=== PATIENT | male | born 1995 | race Caucasian/White ===

== ENCOUNTER 2018-11-14 00:27 | Observation (INO) | payer BC ==
[2018-11-14] MEDS ORDERED: HYDROmorphone 1 MG/ML Syringe IVPUSH ONE ×4 (00:48→07:17)
[2018-11-14] MEDS ORDERED: Metoclopramide 10 MG/2 ML SDV IVPUSH ONE ×2 (00:48→07:17)
--- NOTE | 2018-11-14 00:48 | EDM.PDOC ---
ED HPI GENERAL MEDICAL PROBLEM - General Chief Complaint: Abdominal Pain Stated Complaint: ABDOMINAL PAIN/BLOOD IN VOMIT Time Seen by Provider: 11/14/18 00:42 Source of Information: Reports: Patient History Limitations: Reports: No Limitations - History of Present Illness INITIAL COMMENTS - FREE TEXT/NARRATIVE: 23-year-old male presents to the ED with left upper quadrant epigastric abdominal pain and pain radiating up into his anterior chest and left anterior shoulder. Patient states he woke up this morning with epigastric pain / discomfort and took a Nexium 40mg tablet which alleviated his discomfort until after eating supper tonight. This was about 2000 hrs. After this he developed associated nausea and vomiting and dry heaving. He states the last 2 emeses contained jennifer blood, enough to fill a handful both times. It was bright red without any clots. Currently is having no trouble swallowing. Patient has a history of being diagnosed with H. pylori infection a year ago and did complete a course of therapy. He has a history of significant gastroesophageal reflux disease with the occasional awakening during the night with brash water in his mouth and throat. He states he's been plagued with epigastric and anterior chest pain particularly the left side radiating to his arm many times over the last several years. He states he been to the emergency room around 25 times and always has a normal heart check up. No formal diagnosis is ever been made as to the cause for his recurrent chest pains. Of note the patient is very large he weighs currently around 340 pounds. He does drink alcohol occasionally but hasn' t for some time now. Does not take Motrin or Aleve or aspirin. Described his current pain is deep boring and burning type pain in the pit of his stomach. Initial vital signs are stable. Patient states she's been living on Nexium and Prilosec and antacids for many years. Onset: Sudden Onset Date: 11/13/18 Onset Time: 20:30 (Estimates he's vomited 5-6 times.) Duration: Hour(s):, Getting Worse (Last 2 emeses contained jennifer blood with no clots) Location: Reports: Chest, Abdomen (Epigastrium and left upper quadrant of the abdomen radiating up into his) Quality: Reports: Ache, Burning Severity: Severe (810) Improves with: Reports: None Worsens with: Reports: None Context: Denies: Activity, Exercise, Lifting, Sick Contact, Trauma, Other Associated Symptoms: Reports: Chest Pain, Loss of Appetite, Nausea/Vomiting ( See history of present illness). Denies: Confusion, Cough, cough w sputum, Diaphoresis, Fever/Chills, Headaches, Malaise, Rash, Seizure, Shortness of Breath, Syncope, Weakness Treatments CONTACT CENTRE SUPERVISOR: Reports: Other (see below) (None.) Left Upper Abdomen Pain Score (Numeric/FACES): 7 - Related Data Allergies Allergy/AdvReac Type Severity Reaction Status Date / Time No Known Allergies Allergy Verified 11/14/18 00:38 Home Meds: Home Meds Esomeprazole Magnesium [Nexium] 40 mg PO DAILY 11/14/18 [History] Ondansetron [Zofran ODT] 4 mg PO Q6H PRN #30 tab.dis 11/14/18 [Rx] Past Medical History Gastrointestinal History: Reports: GERD Psychiatric History: Reports: Anxiety Social & Family History - Tobacco Use Smoking Status *Q: Never Smoker - Caffeine Use Caffeine Use: Reports: Coffee - Recreational Drug Use Recreational Drug Use: No - Living Situation & Occupation Living situation: Reports: Occupation: Employed (Self-employed) ED ROS GENERAL - Review of Systems Review Of Systems: See Below Constitutional: Reports: Decreased Appetite. Denies: Fever, Chills, Malaise, Weakness, Fatigue, Weight Loss HEENT: Reports: No Symptoms Respiratory: Reports: No Symptoms Cardiovascular: Reports: Chest Pain (Starts in his epigastrium and radiates up into his chest although it to his left shoulder at times). Denies: Blood Pressure Problem, Claudication, Dyspnea on Exertion, Edema, Lightheadedness, Orthopnea, Palpitations Endocrine: Reports: No Symptoms GI/Abdominal: Reports: Abdominal Pain (See history of present illness), Hematemesis, Nausea, Vomiting (Recurrent vomiting since about 2030 hrs. last night with the last 2 emeses containing jennifer blood.) : Reports: No Symptoms Musculoskeletal: Reports: Back Pain (Occasional low back pain) Skin: Reports: No Symptoms Neurological: Reports: No Symptoms Psychiatric: Reports: No Symptoms Hematologic/Lymphatic: Reports: No Symptoms Immunologic: Reports: No Symptoms ED EXAM, GI/ABD - Physical Exam Exam: See Below Exam Limited By: No Limitations General Appearance: Alert, WD/WN, Mild Distress, Other (Blood pressure is 124/ 90. Pulse ox 96% on room air temperatures 35.7 which is inaccurate. Pulse is 76 and sinus.) Eyes: Bilateral: Normal Appearance (No pallor.) Throat/Mouth: Normal Inspection, Normal Lips, Normal Teeth, Normal Oropharynx, Other (No signs of recent nosebleed) Head: Atraumatic, Normocephalic Neck: Normal Inspection, Supple, Non-Tender, Full Range of Motion. No: Lymphadenopathy (L), Lymphadenopathy (R) Respiratory/Chest: No Respiratory Distress, Lungs Clear, Normal Breath Sounds, No Accessory Muscle Use Cardiovascular: Normal Peripheral Pulses, Regular Rate, Rhythm, No Edema, No Gallop, No Murmur, No Rub GI/Abdominal Exam: Normal Bowel Sounds, No Organomegaly, No Mass, Pelvis Stable , Guarding ( There is some guarding on the left upper quadrant), Tender ( Tenderness in the epigastrium and left upper quadrant particularly.). No: Rigid , Rebound (Male) Exam: No Hernia Back Exam: Normal Inspection. No: CVA Tenderness (L), CVA Tenderness (R) Extremities: Normal Inspection, Normal Range of Motion, Non-Tender, No Pedal Edema Neurological: Alert, Oriented, CN II-XII Intact, Normal Cognition Psychiatric: Anxious Skin Exam: Warm, Dry (Mildly anxious), Intact, Normal Color, No Rash Course - Vital Signs Last Recorded V/S: Last Vital Signs Temp 36.7 C 11/14/18 08:21 Pulse 60 11/14/18 08:21 Resp 16 11/14/18 08:21 BP 144/77 H 11/14/18 08:21 Pulse Ox 91 L 11/14/18 08:21 - Orders/Labs/Meds Labs: Laboratory Tests 11/14/18 11/14/18 11/14/18 Range/Units 00:50 00:50 00:50 WBC 7.91 (4.23-9.07) K/mm3 RBC 5.24 (4.63-6.08) M/mm3 Hgb 15.1 (13.7-17.5) gm/L Hct 45.5 (40.1-51.0) % MCV 86.8 (79.0-92.2) fl MCH 28.8 (25.7-32.2) pg MCHC 33.2 (32.2-35.5) g/dl RDW Std Deviation 43.4 (35.1-43.9) fL Plt Count 260 (163-337) K/mm3 MPV 10.2 (9.4-12.3) fl Neutrophils % (Manual) 43 (40-60) % Band Neutrophils % 1 (0-10) % Lymphocytes % (Manual) 46 H (20-40) % Atypical Lymphs % 0 % Monocytes % (Manual) 8 (2-10) % Eosinophils % (Manual) 0 L (0.8-7.0) % Basophils % (Manual) 2 H (0.2-1.2) Platelet Estimate Adequate Plt Morphology Comment Normal RBC Morph Comment Normal PT (9.5-12.1) SECONDS INR APTT (24-31) SECONDS Sodium 139 (136-145) mEq/L Potassium 3.8 (3.5-5.1) mEq/L Chloride 101 (98-107) mEq/L Carbon Dioxide 24 (21-32) mEq/L Anion Gap 17.8 H (5-15) BUN 18 (7-18) mg/dL Creatinine 1.1 (0.7-1.3) mg/dL Est Cr Clr Drug Dosing 117.03 mL/min Estimated GFR (MDRD) > 60 (>60) mL/min BUN/Creatinine Ratio 16.4 (14-18) Glucose 102 (74-106) mg/dL Calcium 9.5 (8.5-10.1) mg/dL Total Bilirubin 0.3 (0.2-1.0) mg/dL AST 28 (15-37) U/L ALT 63 (16-63) U/L Alkaline Phosphatase 40 L (46-116) U/L Total Protein 7.7 (6.4-8.2) g/dl Albumin 4.2 (3.4-5.0) g/dl Globulin 3.5 gm/dL Albumin/Globulin Ratio 1.2 (1-2) Lipase 172 (73-393) U/L Blood Type A POSITIVE Gel Antibody Screen Negative 11/14/18 11/14/18 11/14/18 Range/Units 00:50 06:05 06:05 WBC (4.23-9.07) K/mm3 RBC (4.63-6.08) M/mm3 Hgb 14.8 (13.7-17.5) gm/L Hct 44.7 (40.1-51.0) % MCV (79.0-92.2) fl MCH (25.7-32.2) pg MCHC (32.2-35.5) g/dl RDW Std Deviation (35.1-43.9) fL Plt Count (163-337) K/mm3 MPV (9.4-12.3) fl Neutrophils % (Manual) (40-60) % Band Neutrophils % (0-10) % Lymphocytes % (Manual) (20-40) % Atypical Lymphs % % Monocytes % (Manual) (2-10) % Eosinophils % (Manual) (0.8-7.0) % Basophils % (Manual) (0.2-1.2) Platelet Estimate Plt Morphology Comment RBC Morph Comment PT 10.5 (9.5-12.1) SECONDS INR 0.96 APTT 29 (24-31) SECONDS Sodium 138 (136-145) mEq/L Potassium 3.7 (3.5-5.1) mEq/L Chloride 103 (98-107) mEq/L Carbon Dioxide 23 (21-32) mEq/L Anion Gap 15.7 H (5-15) BUN 16 (7-18) mg/dL Creatinine 1.0 (0.7-1.3) mg/dL Est Cr Clr Drug Dosing 128.73 mL/min Estimated GFR (MDRD) > 60 (>60) mL/min BUN/Creatinine Ratio 16.0 (14-18) Glucose 95 (74-106) mg/dL Calcium 9.0 (8.5-10.1) mg/dL Total Bilirubin (0.2-1.0) mg/dL AST (15-37) U/L ALT (16-63) U/L Alkaline Phosphatase (46-116) U/L Total Protein (6.4-8.2) g/dl Albumin (3.4-5.0) g/dl Globulin gm/dL Albumin/Globulin Ratio (1-2) Lipase (73-393) U/L Blood Type Gel Antibody Screen 11/14/18 Range/Units 06:05 WBC (4.23-9.07) K/mm3 RBC (4.63-6.08) M/mm3 Hgb (13.7-17.5) gm/L Hct (40.1-51.0) % MCV (79.0-92.2) fl MCH (25.7-32.2) pg MCHC (32.2-35.5) g/dl RDW Std Deviation (35.1-43.9) fL Plt Count (163-337) K/mm3 MPV (9.4-12.3) fl Neutrophils % (Manual) (40-60) % Band Neutrophils % (0-10) % Lymphocytes % (Manual) (20-40) % Atypical Lymphs % % Monocytes % (Manual) (2-10) % Eosinophils % (Manual) (0.8-7.0) % Basophils % (Manual) (0.2-1.2) Platelet Estimate Plt Morphology Comment RBC Morph Comment PT (9.5-12.1) SECONDS INR APTT (24-31) SECONDS Sodium (136-145) mEq/L Potassium (3.5-5.1) mEq/L Chloride (98-107) mEq/L Carbon Dioxide (21-32) mEq/L Anion Gap (5-15) BUN (7-18) mg/dL Creatinine (0.7-1.3) mg/dL Est Cr Clr Drug Dosing mL/min Estimated GFR (MDRD) (>60) mL/min BUN/Creatinine Ratio (14-18) Glucose (74-106) mg/dL Calcium (8.5-10.1) mg/dL Total Bilirubin (0.2-1.0) mg/dL AST (15-37) U/L ALT (16-63) U/L Alkaline Phosphatase (46-116) U/L Total Protein (6.4-8.2) g/dl Albumin (3.4-5.0) g/dl Globulin gm/dL Albumin/Globulin Ratio (1-2) Lipase 129 (73-393) U/L Blood Type Gel Antibody Screen Meds: Medications Discontinued Medications Generic Name Dose Route Start Last Admin Trade Name Freq PRN Reason Stop Dose Admin Al Hydroxide/Mg Hydroxide 30 0 ml 11/14/18 00:52 11/14/18 01:07 ml/ Lidocaine HCl 15 ml PO 11/14/18 00:53 45 ml ONETIME ONE Administration Hydromorphone HCl 1 mg 11/14/18 00:48 11/14/18 01:04 Dilaudid IVPUSH 11/14/18 00:49 1 mg ONETIME ONE Administration Hydromorphone HCl 1 mg 11/14/18 01:52 11/14/18 01:58 Dilaudid IVPUSH 11/14/18 01:53 1 mg ONETIME ONE Administration Hydromorphone HCl 1 mg 11/14/18 03:28 11/14/18 03:36 Dilaudid IVPUSH 11/14/18 03:29 1 mg ONETIME ONE Administration Hydromorphone HCl 1 mg 11/14/18 07:17 11/14/18 07:30 Dilaudid IVPUSH 11/14/18 07:18 1 mg ONETIME ONE Administration Hydromorphone HCl 1 mg 11/14/18 08:46 11/14/18 13:13 Dilaudid IVPUSH 1 mg Q2H PRN Administration Pain Sodium Chloride 1,000 mls @ 250 mls/hr 11/14/18 01:00 11/14/18 01:01 Normal Saline IV 250 mls/hr ASDIRECTED SHAUN Administration Pantoprazole Sodium 80 mg/ 100 mls @ 10 mls/hr 11/14/18 01:00 11/14/18 01:12 Sodium Chloride IV 10 mls/hr Q10H SHAUN Administration Potassium Chloride/Dextrose/Sod Cl 1,000 mls @ 125 mls/hr 11/14/18 08:45 09:12 D5 Ns With 20 Meq Kcl IV 125 mls/hr ASDIRECTED SHAUN Administration Lorazepam 1 mg 11/14/18 03:28 11/14/18 03:40 Ativan IVPUSH 11/14/18 03:29 1 mg ONETIME ONE Administration Metoclopramide HCl 10 mg 11/14/18 00:48 11/14/18 01:02 Reglan IVPUSH 11/14/18 00:49 10 mg ONETIME ONE Administration Metoclopramide HCl 10 mg 11/14/18 07:17 11/14/18 07:30 Reglan IVPUSH 11/14/18 07:18 10 mg ONETIME ONE Administration Metoclopramide HCl 10 mg 11/14/18 08:45 Reglan IVPUSH Q6H PRN Nausea/Vomiting Ondansetron HCl 4 mg 11/14/18 10:00 11/14/18 10:07 Zofran IVPUSH 4 mg Q4H PRN Administration Nausea/Vomiting Pantoprazole Sodium 80 mg 11/14/18 00:52 11/14/18 01:06 Protonix Iv IVPUSH 11/14/18 00:53 80 mg BOLUS ONE Administration Pantoprazole Sodium 40 mg 11/15/18 09:00 Protonix PO DAILY SHAUN - Radiology Interpretation Free Text/Narrative:: 23-year-old male presents to the ED with severe left upper quadrant abdominal pain with no radiation into his back. Associated epigastric pain radiating up into his lower anterior chest only up to his left shoulder and left neck. He states that he awoke last evening with epigastric pain and took a Nexium tablet and it seemed to improve. He worked all day. He states "2000 hrs. and about 2030 hrs. are to feel nausea and then started vomiting. He estimates he's vomited 6 or 7 times in the last 2 emeses contained jennifer blood. He states the pain in his epigastrium and left upper quadrant is 9 out of 10. He rarely drinks alcohol. He states he hasn't had a beer for about a month. He has a history of chronic gastroesophageal reflux disease with occasional awakening during the night with brash water acid in his throat although this doesn't happen is much as it did a couple of years ago. He takes Nexium pretty well every day. He also uses Zantac frequently. He states he's been to the emergency room in [place] quite a few times due to development of left precordial chest discomfort and left shoulder pain to rule out heart attack. No formal diagnosis is the cause of his pain is ever been identified. History suggests that he had H. pylori infection diagnosed about a year ago and was better transiently after treated with antibiotic therapy. It is suspect that he may well have a recurrence of this. Plan routine labs to be done .Type and screen as well. IV will be normal saline at 150 mils per hour. Will give Reglan 10 mg IV with Dilaudid 1 mg IV for acute pain relief. We'll also give him Protonix 80 mg IV bolus and start him on a drip at 10 mils per hour. - Re-Assessments/Exams Free Text/Narrative Re-Assessment/Exam: 11/14/18 01:53 chest x-ray was within normal limits. CT the abdomen and pelvis confirms a moderate sized hiatal hernia. Visualized portions the lung nicholas are clear. Liver is homogeneous with no intraductal dilatation. Gallbladder is small and contracted. Stomach is full of food. Spleen appears to be normal pancreas appears to be normal both kidneys and drainage systems are normal. Bowel gas pattern is otherwise unremarkable. No evidence of appendicitis .No free fluid in the pelvis. Bladder is fairly full. When I spoke to the patient he states that the chest discomfort is pretty well gone ,but he has persistent pain left upper quadrant of the abdomen. Will repeat Dilaudid 1 mg IV. 11/14/18 02:20 Labs are back showing a normal white count at 7.91. Differential is 43% neutrophils 1% bands and 46% lymphocytes i.e. mild right shift. Hemoglobin is 15.1 with hematocrit of 45.5. Platelet count is 260,000. PT is 10.5 with an INR of 0.96. PTT is 29. Sodium 139 with a potassium of 3.8. Chloride 11 with a bicarbonate of 24. And a gap is mildly elevated at 17.8. BUN is normal at 18. Creatinine is 1.1. Estimated GFR is greater than 60. Glucose is 102 with a calcium of 9.5. Liver function is otherwise normal. Total protein 7.7 with an albumin fraction of 4.2. Lipase is normal at 172. 11/14/18 03:29 patient reports pain in the left upper quadrant of his abdomen is coming back or worsening again. Will repeat Dilaudid 1 mg IV and Ativan 1 mg will be added as well. He is for repeat lab work at 0600 hrs. to check on his hemoglobin and hematocrit and his BUN. This will tell me for sure that he did not have a significant upper GI bleed and that was caused from recurrent retching and vomiting. Patient weighs 340 pounds. 11/14/18 06:30 Repeat hemoglobin is 14.8 with the initial reading being 15.1 by mildly diluted by fluids he received. Hematocrit is nearly the same as well and 44.7 suggesting no further bleeding. Of note the BMP is not yet back. 11/14/18 06:52 BMP is not available. Sodium is unchanged at 138. Potassium is 3.7. Chloride 103 with a bicarbonate of 23. And a gap is improved to 15.7. BUN is lower at 16 indicating no significant or persistent GI bleeding. On reexamination over the patient still having significant left upper quadrant abdominal pain. IV analgesia has relieved the pain but it never is gone away completely. Therefore I think it is probably prudent to keep him in the hospital for surgical consultation and consideration for EGD. I will have a serum lipase repeated as well as he is acting like a pancreatitis. I did have him swallow small amount of water and he did have some distal pain and it seemed to make him more nauseated when it reached his stomach.. 11/14/18 07:16 I've discussed the case with orthopedic shoes salesperson surgeon Dr. Truman Recinos. He has accepted the patient in care and he will be admitted to the [facility] floor at this time at least for observation status. I will repeat his Reglan 10 mg IV and Dilaudid 1 mg IV now for pain relief. Bridge orders have been written. Departure - Departure Time of Disposition: 07:23 Disposition: Home, Self-Care 01 Condition: Fair Clinical Impression: Hiatal hernia with gastroesophageal reflux disease and esophagitis Acute gastritis with bleeding Qualifiers: Gastritis type: unspecified gastritis Qualified Code(s): K29.01 - Acute gastritis with bleeding Vomiting Qualifiers: Vomiting type: hematemesis Nausea presence: with nausea Qualified Code(s): K92.0 - Hematemesis Abdominal pain Qualifiers: Abdominal location: left upper quadrant Qualified Code(s): R10.12 - Left upper quadrant pain - Discharge Information *PRESCRIPTION DRUG MONITORING PROGRAM REVIEWED*: Not Applicable *COPY OF PRESCRIPTION DRUG MONITORING REPORT IN PATIENT VASU: Not Applicable
[2018-11-14] MEDS ORDERED: Pantoprazole 40 MG Vial IVPUSH ONE (00:52)
[2018-11-14] MEDS ORDERED: Alum Hydrox/Mag Hydrox/Simeth 30 ML, Lidocaine 2% 15 ML PO ONE ×2 (00:52)
[2018-11-14] MEDS ORDERED: Pantoprazole 80 MG in Sodium Chloride 0.9% 100 ML IV SCH (01:00)
[2018-11-14] MEDS ORDERED: Sodium Chloride 0.9% 1,000 ML IV SCH (01:00)
[2018-11-14] MEDS ORDERED: LORazepam 2 MG/ML SDV IVPUSH ONE (03:28)
[2018-11-14] MEDS ORDERED: Metoclopramide 10 MG/2 ML SDV IVPUSH PRN (08:45)
[2018-11-14] MEDS ORDERED: Dextrose 5%-0.9% NaCl with KCl 1,000 ML IV SCH (08:45)
--- NOTE | 2018-11-14 09:11 | CT ---
CT abdomen and pelvis Technique: Multiple axial images were obtained from above the dome of the diaphragm inferiorly through the pubic symphysis. Intravenous contrast was utilized. No oral contrast has been given. Delayed images were obtained through the bladder. Comparison: No prior abdominal imaging. Findings: Small portion of the visualized lung bases are clear. Liver contains no focal abnormality. Spleen appears within normal limits. Fatty containing small nodule is noted within the left adrenal gland compatible with incidental myelolipoma. Adrenal glands are otherwise unremarkable. Kidneys show symmetric contrast enhancement without hydronephrosis. An area in small low density cortical finding is seen within the mid right kidney measuring 1.0 cm which is too small to characterize by Hounsfield unit measurements but most likely represents a minimal cyst. Pancreas is within normal limits. Gallbladder contains no calcified gallstones. Aorta shows no aneurysm. No retroperitoneal adenopathy is seen. Appendix is seen which is normal. No mesenteric abnormalities are seen. No pelvic mass or adenopathy is seen. Delayed images show contrast within nondilated distal ureters as well as contrast within the bladder. Bone window settings show nothing acute. Impression: 1. Incidental findings as noted above. Nothing acute is appreciated on CT study of the abdomen and pelvis. Diagnostic code #2 I agree with preliminary report from [facility], finalized on 11/14/18, 3:47 AM Central Time
--- NOTE | 2018-11-14 09:15 | CR ---
Chest: PA view of the chest was obtained. Comparison: No prior chest imaging. Heart size and mediastinum are normal. Lungs are clear. Bony structures are grossly intact. Impression: 1. Nothing acute is seen on frontal chest x-ray. Diagnostic code #1
[2018-11-14] MEDS ORDERED: Ondansetron 4 MG/2 ML SDV IVPUSH PRN (10:00)
[2018-11-14] MEDS: HYDROmorphone 1 MG/ML Syringe IVPUSH PRN ×2 (10:56→13:13)
--- NOTE | 2018-11-14 16:28 | HP ---
DATE OF ADMISSION: 11/14/2018 ADMITTING DIAGNOSES: 1. Left upper quadrant abdominal pain. 2. History of H pylori infection. 3. Nausea and vomiting. DISCHARGE DIAGNOSES: 1. Left upper quadrant abdominal pain. 2. History of H pylori infection. 3. Nausea and vomiting. HISTORY OF PRESENT ILLNESS: The patient is a 23-year-old male, who presented with sudden onset of nausea and vomiting after his dinner last night. He said he was having his dinner which consisted of pork, when he became nauseated. He vomited about 5 times violently. He then vomited a few more times. This time, his vomitus was tinged with bright red blood. This occurred yesterday around dinnertime. On further questioning, he did admit to some mild abdominal pain, which had started earlier in the morning. He said the pain resolved and then returned last night while he was trying to sleep. He has had frequent visits to the emergency department, 3 times with similar gastrointestinal complaints, 25 times for chest pain. He was diagnosed with an H. pylori infection last year. He later admitted that he did not complete the course of antibiotics. He had an upper endoscopy 3 years ago for similar complaints. He was started on Nexium and has continued to take a PPI. He denies any recent use of NSAIDs. He takes no other medications. He was seen in the ED last night where he remained hemodynamically stable. PAST MEDICAL HISTORY: 1. Gastroesophageal reflux disease. 2. H. pylori infection. 3. Morbid obesity. 4. Anxiety disorder. PAST SURGICAL HISTORY: He had a small mass removed from his ear. SOCIAL HISTORY: He is a nonsmoker. He has never smoked. Denies illicit drugs. Denies alcohol abuse. He is and lives with his family. He works as a hha on a road crew. He lives in [place] 6 months out of the year. The other 6 months, he lives in [place]. REVIEW OF SYSTEMS: A 10-system review is completely negative. PHYSICAL EXAMINATION: GENERAL: He is alert. He appears cheerful, in no obvious distress. He looks quite comfortable. VITAL SIGNS: Temperature 98.1, pulse 60, respirations 16, blood pressure 144/77. HEAD AND NECK: Normocephalic, atraumatic. His neck is supple. Full range of motion. LUNGS: Clear to auscultation bilaterally. HEART: Regular rate and rhythm. No clicks, murmurs, or rubs. ABDOMEN: Soft. No acute guarding or rebound. He has some mild left upper quadrant tenderness. No abdominal surgical scars present. EXTREMITIES: No clubbing, cyanosis, or edema. No calf tenderness. PSYCHIATRIC: He does not appear anxious. He has appropriate affect and demeanor. NEUROLOGIC: His cranial nerves are grossly intact, nonfocal. Moving all 4 extremities. Sensation preserved. LABORATORY DATA: He had labs in the ED, which showed a normal white count. No significant drop in his hemoglobin beyond dilution. Coags are normal. Chemistry is within normal limits except for a mild anion gap acidosis of 15.7. RADIOGRAPHIC STUDIES: I reviewed his CT scan. This appears completely normal. There is no evidence of inflammation around the stomach, looks like he had a full stomach at the time of his exam. I cannot appreciate a hiatal hernia, this was mentioned previously. ASSESSMENT: Likely Helicobacter pylori infection. PLAN: I have asked him to give us a stool sample. I will hold off on antibiotics until we have a positive result. He is already on proton pump inhibitors at home. I do not think it is a good reason to treat him until we have a definitive answer. As far as performing upper endoscopy, if his scope is negative and his symptoms persist, I do not think an EGD would be a bad idea. We can arrange this as an outpatient. He is in no clear danger currently, so this does not have to be done emergently. I will arrange for Zofran prescription for him and await the results of his H. pylori assay. HANH /[id number]
--- NOTE | 2018-11-15 02:24 | DISCH ---
ADMISSION DATE: 11/14/2018 DISCHARGE DATE: 11/14/2018 ADMITTING DIAGNOSES: 1. History of Helicobacter pylori infection. 2. Left upper quadrant abdominal pain. 3. Danisha-Zapata tear. 4. Nausea and vomiting. DISCHARGE DIAGNOSES: 1. History of Helicobacter pylori infection. 2. Left upper quadrant abdominal pain. 3. Danisha-Zapata tear. 4. Nausea and vomiting. HOSPITAL COURSE: The patient was admitted through the ED last night with recurrent episode of left upper quadrant abdominal pain. He has been in the ED 3 times with the same complaint. He also had episodes in [place] complaining of the same or similar symptoms. He has also had approximately 25 admissions with chest pain at 23 years old. The patient was treated with IV fluids. He had some pain medication in the ED, but nothing here in the floor. His pain went from an 8 to a 4. His vitals have been completely within normal limits. He has not asked for any pain medication here on the floor. On my physical exam, he had minimal tenderness and otherwise unremarkable physical exam. CT scan showed no evidence of any abdominal pathology. In fact, the study was read as normal. His white count is normal. He has no significant left shift. Given the history of H. pylori infection and his later discussion with me admitting that he had not completed his antibiotic regimen and seems likely has an H. pylori infection causing his pain, I have written for a prescription for Zofran. I have asked him to give us a stool sample for to confirm the diagnosis of H. pylori infection. If this proves positive, I will treat him with antibiotics. This can be done as an outpatient. If that is negative and his pain persists, an EGD I think is warranted. I will see him in the office as an outpatient, and we can arrange this at his convenience. He is quite eager to leave the hospital. He says he feels well, and he is well supported in the community. FINAL DIAGNOSIS: DISCHARGE MEDICATIONS: DIET: ACTIVITY: FOLLOW-UP: CONDITION ON DISCHARGE: HANH /[id number]
[2018-11-15] MEDS ORDERED: Pantoprazole 40 MG Tab.CR PO SCH (09:00)
== END 2018-11-14 13:20 | disposition home or self-care (01) ==
LOC: JD.ED 00:27 → JD.MS 07:24
PROVIDERS: ADMIT Surgery; ATTEND Surgery
DX: K22.6 Gastro-esophageal laceration-hemorrhage syndrome (principal); K21.9 Gastro-esophageal reflux disease without esophagitis; F41.9 Anxiety disorder, unspecified; E66.01 Morbid (severe) obesity due to excess calories; Z68.41 Body mass index [BMI] 40.0-44.9, adult; Z86.19 Personal history of other infectious and parasitic diseases
CPT/HCPCS: 36415; 71045; 74177; 80048; 80053; 83690; 85007; 85014; 85018; 85027; 85610; 85730; 86850; 86900; 86901; 87338; 96365; 96366; 96375; 96376; 99285; A9270; C9113; J1170; J2060; J2405; J2765; J3480; J7030; J7040